=== PATIENT | female | born 1975 | race Caucasian/White ===

== ENCOUNTER 2019-06-23 21:36 | Emergency (ER) | payer OTHER ==
[2019-06-23] MEDS ORDERED: IBUPROFEN 600 MG TABLET (FP) PO ONE ×2 (21:51→22:55)
[2019-06-23] MEDS ORDERED: ONDANSETRON *ODT* 4 MG TABLET SL ONE (21:51)
--- NOTE | 2019-06-23 21:51 | PDOC ---
Rapid Medical Evaluation Time Seen by Provider: 06/23/19 21:38 Medical Evaluation: Allergies Allergy/AdvReac Type Severity Reaction Status Date / Time grass pollen-vaishali, Allergy Verified 06/11/11 15:45 standard 06/23/19 21:48 CC: fever and chills Pt is a 44 y/o female with fever, chills and vomiting for a few days. Pt admits to cough and congestion. No recent travel outside of the [place]. Subjective fevers only. Pt did not get a flu shot this year. Brief exam: + nasal congestion, non-toxic appearing, no respiratory distress Orders: samson randall To ED for further evaluation Discharge Disposition - Diagnosis Fever - Referrals - Patient Instructions - Post Discharge Activity
[2019-06-23 21:57] VITALS: BMI 38.4
[2019-06-23] MEDS ORDERED: SODIUM CHLORIDE 2,858 ML IV ONE (22:47)
--- NOTE | 2019-06-23 22:47 | PDOC ---
History of Present Illness - General Chief Complaint: Cold Symptoms Stated Complaint: FEVER Time Seen by Provider: 06/23/19 21:38 History Source: Patient Exam Limitations: No Limitations - History of Present Illness Initial Comments: Erna Patel is a healthy 44 yo F who denies having any significant pmh who presents to the [facility] er with 3 days of fevers up to 103 and flu-like symptoms including non-productive cough, runny nose, sore throat, abdominal pain, nausea multiple episodes of NBNB vomitus, multiple episodes of watery diarrhea, anorexia, decreased PO and fluid intake, vigorous myalgias, and diffuse body pain. She states her mother is home with a cough, fever, and URI symptoms and she believes she caught her illness from her mother. She presents to the ER because she feels week and dehydrated and would like us to make sure nothing is wrong and to help her feel better by hydrating her and giving her some medications to make her feel better. She has been occasionally taking tylenol and motrin at home for symptomatic relief. Denies recent travel, headache, neck pain, dysuria, frequency, or urgency. LMP: Currently on it. PCP: Den Minor PSH: Cholecystectomy, tubal ligation Allergies; Seasonal, grass pollen-vaishali Social Hx: Denies smoking, drinking, or other substance abuse. Independent in ADL. Past History - Past Medical History Allergies/Adverse Reactions: Allergies Allergy/AdvReac Type Severity Reaction Status Date / Time grass pollen-vaishali, Allergy Verified 06/23/19 21:48 standard Home Medications: Ambulatory Orders Zyrtec 1 mg PO HS PRN 06/11/11 Anemia: No Asthma: No Cancer: No Cardiac Disorders: No CVA: No COPD: No CHF: No Dementia: No Diabetes: No GI Disorders: No Disorders: No HTN: No Hypercholesterolemia: No Liver Disease: No Seizures: No Thyroid Disease: No - Surgical History Abdominal Surgery: No Appendectomy: No Cardiac Surgery: No Cholecystectomy: Yes Lung Surgery: No Neurologic Surgery: No Orthopedic Surgery: No - Immunization History Immunization Up to Date: Yes - Psycho Social/Smoking Cessation Hx Smoking History: Never smoked Have you smoked in the past 12 months: Yes Hx Alcohol Use: No Drug/Substance Use Hx: No Substance Use Type: None Hx Substance Use Treatment: No Review of Systems - Review of Systems Able to Perform ROS?: Yes Comments:: CONSTITUTIONAL: Present: fevers, chills, fatigue EYES: Absent: visual changes ENT: Absent: ear pain, no sore throat CARDIOVASCULAR: Present: chest pain Absent: no palpitations RESPIRATORY: Present: Cough Absent: no SOB GI: Present: Abdominal pain, nausea, vomiting, diarrhea Absent: no constipation GENITOURINARY: Absent: dysuria, no frequency, no hematuria MUSKULOSKELETAL: Present: Back pain, myalgia Absent: no arthralgia SKIN: Absent: rash NEURO: Absent: headache *Physical Exam - Vital Signs Last Vital Signs Temp Pulse Resp BP Pulse Ox 102.2 F H 129 H 17 126/75 96 06/23/19 21:49 06/23/19 21:49 06/23/19 21:49 06/23/19 21:49 06/23/19 21:49 - Physical Exam GENERAL: Patient feels warm to touch. Well-appearing, well-nourished. No apparent distress. HEENT: Normocephalic, atraumatic. PERRL, EOM intact. CARDIOVASCULAR: Tachycardic rate. Normal S1, S2. Regular rhythm. PULMONARY: No evidence of respiratory distress. Lungs clear to auscultation bilaterally. No wheezing, rales or rhonchi. ABDOMEN: Soft, non-distended, non-tender. EXTREMITIES: Normal ROM in all four extremities. No gross deformities. SKIN: Hot, dry. No rash NEUROLOGICAL: No focal neurological deficits. ED Treatment Course - LABORATORY CBC & Chemistry Diagram: 06/23/19 23:01 06/23/19 23:01 Medical Decision Making - Medical Decision Making Erna Patel is a healthy 44 yo F who denies having any significant pmh who presents to the [facility] er with 3 days of fevers up to 103 and flu-like symptoms including non-productive cough, runny nose, sore throat, abdominal pain, nausea multiple episodes of NBNB vomitus, multiple episodes of watery diarrhea, anorexia, decreased PO and fluid intake, vigorous myalgias, and diffuse body pain. She states her mother is home with a cough, fever, and URI symptoms and she believes she caught her illness from her mother. She presents to the ER because she feels week and dehydrated and would like us to make sure nothing is wrong and to help her feel better by hydrating her and giving her some medications to make her feel better. She has been occasionally taking tylenol and motrin at home for symptomatic relief. Vital Signs Temp Pulse Resp BP Pulse Ox 102.2 F H 129 H 17 126/75 96 06/23/19 21:49 06/23/19 21:49 06/23/19 21:49 06/23/19 21:49 06/23/19 21:49 DDx IBNLT: Influenza, other viral illness, sepsis, PNA, UTI, electrolyte/ metabolic disturbance, dehydration, RAUL, URI Plan: Sepsis workup, labs, urine, EKG, cxr, flu swab, anti-pyretic, analgesic, anti-emetics, IV hydration, supportive care, re-assess Flu swab: Negative Labs: Elevated LFT's, mildly elevated Lactic. urine: 2+ blood, likely from menstrual cycle. No evidence of infection. EKG: Sinus tachy, No ST elevations suggestive of acute STEMI or other myocardial insult CXR: No acute chest pathology PO Trial: Patient eating and drinking in vertical area of ER after reglan Re-assessment: Patient feels much better after supportive care with IV hydration and requests to be discharged. VS normalized after anti-pyretics and IV hydration. Disposition: Home with PCP fu - Return precautions - Patient will be signed out to Dr. Carpio to complete ED workup and final ED disposition and further care. Discharge - Discharge Information Problems reviewed: Yes Clinical Impression/Diagnosis: Flu-like symptoms, Elevated LFTs, Hepatitis Fever Qualifiers: Fever type: unspecified Qualified Code(s): R50.9 - Fever, unspecified Condition: Stable Disposition: HOME - Admission No - Follow up/Referral Referrals: Den Minor MD [Primary Care Provider] - - Patient Discharge Instructions Patient Printed Discharge Instructions: Influenza (Alternative Therapy), Influenza, DI for Viral Syndrome Additional Instructions: You came into the ER with a fever, body aches, chills, cough, runny nose, nausea , vomiting and diarrhea. It is possible you have the flu. It is also possible you have a different viral illness. Your bloodwork showed that your liver function tests are mildly elevated in the mid 100's. This is something that you must talk about with your primary care doctor at your next doctors appointment because elevated liver function tests need to be examined in greater detail. Please schedule a follow up appointment with your primary care doctor in the next 3 to 5 days. Please make sure to drink plenty of fluids as it is very important to stay hydrated. Take motrin/ibuprofen/advil as needed for discomfort. Come back to the ER immediately if you have shortness of breath, difficulty breathing, have a severe headache, get blurry vision, or have any other new or worsening concerns. Thank you for coming to the [facility] ER. We hope you feel better soon! Print Language: GUATEMALAN - Post Discharge Activity
[2019-06-23] MEDS ORDERED: ACETAMINOPHEN 1000 MG/100 ML VIAL (NON FORMULARY) IVPB ONE (22:50)
[2019-06-23] MEDS ORDERED: METOCLOPRAMIDE HCL INJECTION 10 MG/2 ML VIAL IVPUSH ONE (22:50)
[2019-06-23] MEDS ORDERED: ONDANSETRON *ODT* 4 MG TABLET ONE (22:55)
--- NOTE | 2019-06-23 23:02 | PDOC ---
Attending Attestation - Resident Resident Name: Tim Everett - ED Attending Attestation I have performed the following: I have examined & evaluated the patient, The case was reviewed & discussed with the resident, I agree w/resident's findings & plan, Exceptions are as noted - HPI HPI: 06/23/19 23:01 44 F with no PMH presenting to ED with fevers, chills, cough, N+V+D. Pt denies any significant abdominal pain. No LANE/neck pain. Has sick contact at home with similar symptoms. - Physicial Exam PE: 06/23/19 23:01 "GENERAL: Awake, alert, and fully oriented, in no acute distress. HEAD: No signs of trauma EYES: PERRLA, EOMI, sclera anicteric, conjunctiva clear ENT: Auricles normal inspection, hearing grossly normal, nares patent, oropharynx clear without exudates. Moist mucosa NECK: Nontender, no stepoffs, Normal ROM, supple, no lymphadenopathy, JVD, or masses LUNGS: Breath sounds equal, clear to auscultation bilaterally. No wheezes, and no crackles HEART: Regular rate and rhythm, normal S1 and S2, no murmurs, rubs or gallops ABDOMEN: Soft, nontender, normoactive bowel sounds. No guarding, no rebound. No masses EXTREMITIES: Normal range of motion, no edema. No clubbing or cyanosis. No cords, erythema, or tenderness NEUROLOGICAL: Cranial nerves II through XII intact. 5/5 strength and sensation in all extremities, Normal speech, normal gait, normal cerebellar function SKIN: Warm, Dry, normal turgor, no rashes or lesions noted. - Medical Decision Making 06/23/19 23:02 44 F with cough, fevers, N+V+D. Possible influenza. Will evaluate for other infectious processes as well. - Labs, cultures - CXR, UA - IVF, tylenol 06/24/19 01:37 Labs notable for mild transaminitis, otherwise unremarkable CXR clear Suspect viral URI Pt reassessed - vitals now normalized, pt feeling much better Pt is well appearing, with normal vitals. Clinically stable for DC at this time. I discussed the physical exam findings, ancillary test results and final diagnoses with the patient. I answered all of the patient's questions. The patient was satisfied with the care received and felt comfortable with the discharge plan and treatment plan. The patient agrees to follow up with the primary care physician within 24-72 hours.
[2019-06-23 23:13] LABS: BASO % 0.5 % (0-2.0); EOS % 1.2 % (0-4.5); HEMATOCRIT 34.3 % (32.4-45.2); HEMOGLOBIN 11.2 GM/dL (10.7-15.3); LYMPH % 5.3 % (8-40); MCH 25.1 pg (25.7-33.7); MCHC 32.6 g/dl (32.0-36.0); MEAN PLT VOLUME 8.2 fl (7.5-11.1); PLATELET COUNT 302 K/MM3 (134-434); RBC 4.45 M/mm3 (3.60-5.2); RDW 16.7 % (11.6-15.6); WHITE BLOOD COUNT 9.6 K/mm3 (4.0-10.0)
[2019-06-23] MEDS ORDERED: ACETAMINOPHEN INJECTION 100 ML IVPB ONE (23:26)
[2019-06-23] MEDS ORDERED: METOCLOPRAMIDE HCL INJECTION 10 MG/2 ML VIAL ONE (23:26)
[2019-06-23 23:38] LABS: ALK PHOS 101 U/L (45-117); ANION GAP 10 MMOL/L (8-16); BILIRUBIN,TOTAL 0.5 mg/dL (0.2-1); BLOOD UREA NITROGEN 10.4 mg/dL (7-18); CALCIUM 8.9 mg/dL (8.5-10.1); CHLORIDE 103 mmol/L (98-107); CO2 24 mmol/L (21-32); CREATININE 0.8 mg/dL (0.55-1.3); GLUCOSE,RANDOM 129 mg/dL (74-106); SGOT/AST 151 U/L (15-37); SGPT/ALT 183 U/L (13-61); SODIUM 138 mmol/L (136-145); TOT PROT 8.2 g/dl (6.4-8.2)
[2019-06-23 23:49] LABS: EPI CELLS 0.9 /HPF (0-5/HPF); HYALINE CASTS 1 /lpf (0-8); URINE APPEARANCE CLEAR; URINE BACTERIA 10.8 /hpf (NEGATIVE); URINE BILIRUBIN NEGATIVE (NEGATIVE); URINE COLOR YELLOW; URINE GLUCOSE (UA) NEGATIVE (NEGATIVE); URINE KETONE NEGATIVE (NEGATIVE); URINE LEUK ESTERASE NEGATIVE (NEGATIVE); URINE NITRITE NEGATIVE (NEGATIVE); URINE PROTEIN NEGATIVE (NEGATIVE); URINE RBC 4 /hpf (0-4); URINE UROBILINOGEN 0.2 mg/dL (0.2-1.0); URINE WBC 0 /hpf (0-5)
[2019-06-24 01:33] VITALS: BP 103/63; PULSE 99; TEMP 99.5
--- NOTE | 2019-06-24 15:04 | EKG ---
Test Reason : Blood Pressure : / mmHG Vent. Rate : 114 BPM Atrial Rate : 114 BPM P-R Int : 142 ms QRS Dur : 082 ms QT Int : 342 ms P-R-T Axes : 043 013 024 degrees QTc Int : 471 ms SINUS TACHYCARDIA SEPTAL INFARCT , AGE UNDETERMINED NONSPECIFIC ST ABNORMALITY ABNORMAL ECG NO PREVIOUS ECGS AVAILABLE Confirmed by JOSE A JIM MD ([id number]) on 06/24/2019 3:04:18 PM Referred By: Confirmed By:JOSE A JIM MD
== END 2019-06-24 01:46 | disposition home or self-care (01) ==
LOC: JER 21:36
PROC: 3E0337Z Introduction of Electrolytic and Water Balance Substance into Peripheral Vein, Percutaneous Approach (ICD-10-PCS; principal; 2019-06-23)
PROC: 3E033NZ Introduction of Analgesics, Hypnotics, Sedatives into Peripheral Vein, Percutaneous Approach (ICD-10-PCS; 2019-06-23)
PROC: 3E033GC Introduction of Other Therapeutic Substance into Peripheral Vein, Percutaneous Approach (ICD-10-PCS; 2019-06-23)
PROC: 3E033GC Introduction of Other Therapeutic Substance into Peripheral Vein, Percutaneous Approach (ICD-10-PCS; 2019-06-23)
DX: J11.1 Influenza due to unidentified influenza virus with other respiratory manifestations (principal); K75.9 Inflammatory liver disease, unspecified; R94.5 Abnormal results of liver function studies; Z90.49 Acquired absence of other specified parts of digestive tract; Z98.51 Tubal ligation status; Z91.048 Other nonmedicinal substance allergy status
CPT/HCPCS: 36415; 71045-TC-FY; 80053; 81003; 83605; 84484; 84703; 85025; 87040; 87076; 87086; 87804; 93005; 93010; 99283-25; J0131; J7030; Q0162